=== PATIENT | male | born 1955 | race Caucasian/White ===

== ENCOUNTER → 2023-07-18 11:28 | Outpatient (REF) | payer MEDICARE, BC, SELFPAY | LOC: HWRAD 11:28 | PROVIDERS: ATTENDING PHYSICIAN Podiatrist Foot & Ankle Surgery; FAMILY PHYSICIAN Emergency Medicine | DX: M20.21 Hallux rigidus, right foot (principal) | CPT/HCPCS: 73630 ==

== ENCOUNTER → 2024-12-31 14:30 | Outpatient (REF) | payer MEDICARE, BC, SELFPAY | LOC: CLAB 14:30 | PROVIDERS: ATTENDING PHYSICIAN Otolaryngology | DX: H60.391 Other infective otitis externa, right ear (principal) | CPT/HCPCS: 87070; 87077 ==

== ENCOUNTER → 2025-02-21 12:23 | Outpatient (REF) | payer MEDICARE, BC, SELFPAY | LOC: RADI 12:23 | PROVIDERS: ATTENDING PHYSICIAN Internal Medicine Infectious Disease; FAMILY PHYSICIAN Family Medicine | DX: H60.391 Other infective otitis externa, right ear (principal) | CPT/HCPCS: 36573; C1751 ==

== ENCOUNTER 2025-02-21 13:37 | Outpatient (RCR) | payer MEDICARE, BC, SELFPAY ==
[2025-02-21 13:45] VITALS: BP 131/45
[2025-02-21] MEDS: INVANZ 60 MG IV (13:54)
== END 2025-02-22 09:19 | disposition home or self-care (01) ==
LOC: OID 13:37
PROVIDERS: ATTENDING PHYSICIAN Internal Medicine Infectious Disease; FAMILY PHYSICIAN Family Medicine
DX: H60.391 Other infective otitis externa, right ear (principal)
CPT/HCPCS: 36573; 96365; C1751; J1335